=== PATIENT | female | born 1990 | race American Indian/Alaskan Native ===

== ENCOUNTER 2018-08-30 13:18 | Emergency (ER) | payer MEDICAID ==
--- NOTE | 2018-08-30 14:04 | Emergency Department Report ---
Blank Doc - Documentation Documentation: This is a 27-year-old female that presents with dizziness with nausea. Denies any vomiting. Denies any other symptoms or complaints. This initial assessment diagnostic orders/clinical plan/treatment(s) is/are subject to change based on patient's health status, clinical progression and re- assessment by fellow clinical providers in the ED. Further treatment and workup at subsequent clinical providers discretion. Patient/guardians urged not to elope from ED s their condition may be serious if not clinically assessed and managed. Initial orders include: 1-Patient sent to [facility] for further evaluation and treatment 2- Labs
[2018-08-30 14:49] LABS: Bacteria,Urine 1+ /HPF (Negative); Bilirubin,Urine NEG (Negative); Blood,Urine NEG (Negative); Color,Urine Yellow (Yellow); Mucus,Urine FEW /HPF; Protein,Urine <15 mg/dL mg/dL (Negative); Urobilinogen,Urine < 2.0 mg/dL (<2.0)
[2018-08-30 14:52] LABS: HCG Qualitative,Urine Negative (Negative)
[2018-08-30 14:56] LABS: Basophils # (Auto) 0.1 K/mm3 (0.0-0.1); Basophils % (Auto) 1.4 % (0.0-1.8); Eosinophils % (Auto) 0.8 % (0.0-4.3); Lymphocytes # (Auto) 1.9 K/mm3 (1.2-5.4); Lymphocytes % (Auto) 41.5 % (13.4-35.0); Mean Corpuscular HGB Conc 29 % (30-34); Monocytes # (Auto) 0.4 K/mm3 (0.0-0.8); Monocytes % (Auto) 8.3 % (0.0-7.3); Platelet Count 411 K/mm3 (140-440); Red Blood Count 4.27 M/mm3 (3.65-5.03)
[2018-08-30 15:06] LABS: Hematocrit 23.8 % (30.3-42.9); Hemoglobin 6.9 gm/dl (10.1-14.3); Mean Corpuscular Volume 56 fl (79-97); Red Cell Distribution Width 20.7 % (13.2-15.2)
[2018-08-30 15:10] LABS: BUN/Creatinine Ratio 25; Blood Urea Nitrogen 10 mg/dL (7-17); Calcium 9.3 mg/dL (8.4-10.2); Hemolysis Index 0
--- NOTE | 2018-08-30 15:23 | Emergency Department Report ---
- General Chief complaint: Dizziness Stated complaint: NAUSEA/DIZZY/LIGHT HEADED Time Seen by Provider: 08/30/18 14:03 Source: patient Mode of arrival: Ambulatory Limitations: No Limitations - History of Present Illness Initial comments: She is a 27-year-old Afro[place] female who comes to the ER today with generalized weakness. 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 She states that she is always weak and tired because she is anemic she states is aren't deficiency anemia. Has been getting worse. Her last menstrual cycle was on 08-26. She denies that this was a heavy menses. She states that it was normal and that her menses don't normally make her more weak and symptomatic with her anemia. Patient last saw her PCP at [facility] in about 2 months ago. At that time they told her to go immediately to an emergency room for an iron infusion. She did not go. She states that these symptoms are just impairing her ability to go through her activities of daily living so she came to the ER today. Pt has note had to get iron or blood in the past Past medical history significant for only the anemia. She is on no home medications. Discussed with Dr Rafael MCCULLOUGH Complaint: generalized weakness -: Gradual Quality: constant Improves with: none Worsens with: movement, exertion Associated Symptoms: shortness of breath, other (GEN WEAKNESS). denies: chest pain, confusion, dark stools, diaphoresis, dysuria, easy bruising, fever/chills, headaches, loss of appetite, nausea/vomiting, myalgias, rash, syncope - Related Data Home Medications Medication Instructions Recorded Confirmed Last Taken No Known Home Medications [No 08/30/18 08/30/18 Unknown Reported Home Medications] Allergies Allergy/AdvReac Type Severity Reaction Status Date / Time No Known Allergies Allergy Unverified 08/30/18 13:20 ED Review of Systems ROS: Stated complaint: NAUSEA/DIZZY/LIGHT HEADED Other details as noted in HPI Comment: All other systems reviewed and negative Constitutional: denies: chills, fever Eyes: denies: eye pain ENT: denies: ear pain Respiratory: see HPI, shortness of breath. denies: orthopnea Cardiovascular: as per HPI, dyspnea on exertion. denies: chest pain, palpitations Endocrine: denies: flushing Gastrointestinal: denies: abdominal pain Genitourinary: denies: urgency Musculoskeletal: denies: back pain Skin: denies: lesions Neurological: as per HPI, weakness. denies: headache, numbness, paresthesias, confusion, abnormal gait, vertigo Psychiatric: denies: depression Hematological/Lymphatic: denies: easy bleeding ED Past Medical Hx - Past Medical History Previous Medical History?: Yes Additional medical history: anemia- IRON DEF - Surgical History Past Surgical History?: Yes - Family History Family history: no significant - Social History Smoking Status: Never Smoker Substance Use Type: None - Medications Home Medications: Home Medications Medication Instructions Recorded Confirmed Last Taken Type No Known Home Medications [No 08/30/18 08/30/18 Unknown History Reported Home Medications] ED Physical Exam - General Limitations: No Limitations General appearance: alert - Head Head exam: Present: atraumatic, normocephalic - Eye Eye exam: Present: PERRL, EOMI, other (pale conjunctiva) - ENT ENT exam: Present: mucous membranes moist, other (pale muscous membranes) - Neck Neck exam: Present: normal inspection - Respiratory Respiratory exam: Present: normal lung sounds bilaterally - Cardiovascular Cardiovascular Exam: Present: regular rate, other (wide pulse pressure) - GI/Abdominal GI/Abdominal exam: Present: soft, normal bowel sounds - Rectal Rectal exam: Present: deferred - Extremities Exam Extremities exam: Present: normal inspection - Back Exam Back exam: Present: normal inspection, full ROM - Neurological Exam Neurological exam: Present: alert, oriented X3, normal gait - Psychiatric Psychiatric exam: Present: normal affect, normal mood - Skin Skin exam: Present: warm, dry ED Course Vital Signs 08/30/18 14:03 Temperature 98.1 F Pulse Rate 70 Respiratory 18 Rate Blood Pressure 175/64 O2 Sat by Pulse 100 Oximetry - Reevaluation(s) Reevaluation #1: 08/30/18 15:[address] Starr He agrees pt needs tranfusion He will see and eval her Reevaluation #2: 08/30/18 16:18 PT FE NOTED AT 17 PT BEING TRANSFUSED WILL REPEAT CBC 1 HOUR AFTER BLOOD GIVEN DISPO PER DR STARR ED Medical Decision Making - Lab Data Result diagrams: 08/30/18 14:24 08/30/18 14:24 - Medical Decision Making iron/tibc pending t/c ordered Discussed with Dr Hall. Will ask hosp med to see and evaluate pt for her symptomatic anemia and Hgb of 6.9. In the context of being told to come to the ER months ago for an urgent iron infusion. 1620 fe noted at 17 Pt being transfused with 1 u RBC Will recheck CBC 1 h after transfusion with dispo per Dr Hunter Hall updated Lab Results 08/30/18 08/30/18 08/30/18 Range/Units 14:16 14:24 14:24 WBC 4.5 (4.5-11.0) K/mm3 RBC 4.27 (3.65-5.03) M/mm3 Hgb 6.9 L (10.1-14.3) gm/dl Hct 23.8 L (30.3-42.9) % MCV 56 L (79-97) fl MCH 16 L (28-32) pg MCHC 29 L (30-34) % RDW 20.7 H (13.2-15.2) % Plt Count 411 (140-440) K/mm3 Lymph % (Auto) 41.5 H (13.4-35.0) % [place] % (Auto) 8.3 H (0.0-7.3) % Eos % (Auto) 0.8 (0.0-4.3) % Baso % (Auto) 1.4 (0.0-1.8) % Lymph # 1.9 (1.2-5.4) K/mm3 [place] # 0.4 (0.0-0.8) K/mm3 Eos # 0.0 (0.0-0.4) K/mm3 Baso # 0.1 (0.0-0.1) K/mm3 Seg Neutrophils % 48.0 (40.0-70.0) % Seg Neutrophils # 2.2 (1.8-7.7) K/mm3 Sodium 140 (137-145) mmol/L Potassium 3.9 (3.6-5.0) mmol/L Chloride 103.8 (98-107) mmol/L Carbon Dioxide 25 (22-30) mmol/L Anion Gap 15 mmol/L BUN 10 (7-17) mg/dL Creatinine 0.4 L (0.7-1.2) mg/dL Estimated GFR > 60 ml/min BUN/Creatinine Ratio 25 % Glucose 89 (65-100) mg/dL Calcium 9.3 (8.4-10.2) mg/dL Urine Color Yellow (Yellow) Urine Turbidity Clear (Clear) Urine pH 7.0 (5.0-7.0) Ur Specific [place] 1.018 (1.003-1.030) Urine Protein <15 mg/dl (Negative) mg/dL Urine Glucose (UA) Neg (Negative) mg/dL Urine Ketones Neg (Negative) mg/dL Urine Blood Neg (Negative) Urine Nitrite Neg (Negative) Urine Bilirubin Neg (Negative) Urine Urobilinogen < 2.0 (<2.0) mg/dL Ur Leukocyte Esterase Neg (Negative) Urine WBC (Auto) Not Reportable Urine RBC (Auto) 1.0 (0.0-6.0) /HPF U Epithel Cells (Auto) 1.0 (0-13.0) /HPF Urine Bacteria (Auto) 1+ (Negative) /HPF Urine Mucus Few /HPF Urine HCG, Qual Negative (Negative) Labs 08/30/18 08/30/18 08/30/18 14:16 14:24 14:24 WBC 4.5 RBC 4.27 Hgb 6.9 L Hct 23.8 L MCV 56 L MCH 16 L MCHC 29 L RDW 20.7 H Plt Count 411 Lymph % (Auto) 41.5 H [place] % (Auto) 8.3 H Eos % (Auto) 0.8 Baso % (Auto) 1.4 Lymph # 1.9 [place] # 0.4 Eos # 0.0 Baso # 0.1 Seg Neutrophils % 48.0 Seg Neutrophils # 2.2 Sodium 140 Potassium 3.9 Chloride 103.8 Carbon Dioxide 25 Anion Gap 15 BUN 10 Creatinine 0.4 L Estimated GFR > 60 BUN/Creatinine Ratio 25 Glucose 89 Calcium 9.3 Iron TIBC Urine Color Yellow Urine Turbidity Clear Urine pH 7.0 Ur Specific [place] 1.018 Urine Protein <15 mg/dl Urine Glucose (UA) Neg Urine Ketones Neg Urine Blood Neg Urine Nitrite Neg Urine Bilirubin Neg Urine Urobilinogen < 2.0 Ur Leukocyte Esterase Neg Urine WBC (Auto) Not Reportable Urine RBC (Auto) 1.0 U Epithel Cells (Auto) 1.0 Urine Bacteria (Auto) 1+ Urine Mucus Few Urine HCG, Qual Negative Blood Type Antibody Screen Crossmatch 08/30/18 08/30/18 15:34 15:34 WBC RBC Hgb Hct MCV MCH MCHC RDW Plt Count Lymph % (Auto) [place] % (Auto) Eos % (Auto) Baso % (Auto) Lymph # [place] # Eos # Baso # Seg Neutrophils % Seg Neutrophils # Sodium Potassium Chloride Carbon Dioxide Anion Gap BUN Creatinine Estimated GFR BUN/Creatinine Ratio Glucose Calcium Iron 17 L TIBC 403 Urine Color Urine Turbidity Urine pH Ur Specific [place] Urine Protein Urine Glucose (UA) Urine Ketones Urine Blood Urine Nitrite Urine Bilirubin Urine Urobilinogen Ur Leukocyte Esterase Urine WBC (Auto) Urine RBC (Auto) U Epithel Cells (Auto) Urine Bacteria (Auto) Urine Mucus Urine HCG, Qual Blood Type O POSITIVE Antibody Screen Negative Crossmatch See Detail - Differential Diagnosis symptomatic anemia Critical care attestation.: If time is entered above; I have spent that time in minutes in the direct care of this critically ill patient, excluding procedure time. ED Disposition Clinical Impression: Symptomatic anemia Disposition: DC09 OP ADMIT IP TO THIS HOSP Is pt being admited?: Yes Does the pt Need Aspirin: No Condition: Stable Referrals: PRIMARY MD MARI [Primary Care Provider] - 3-5 Days Time of Disposition: 15:31
[2018-08-30] MEDS ORDERED: NACL 0.9% 500 ML 500 ML IV ONE (15:37)
[2018-08-30 15:59] LABS: Iron 17 ug/dL (37-170); Total Iron Binding Capacity 403 mcg/dL (250-450)
[2018-08-30 21:27] VITALS: BP 125/83
[2018-08-30 21:50] LABS: Basophils # (Auto) 0.1 K/mm3 (0.0-0.1); Basophils % (Auto) 1.3 % (0.0-1.8); Eosinophils # (Auto) 0.1 K/mm3 (0.0-0.4); Eosinophils % (Auto) 1.9 % (0.0-4.3); Hematocrit 23.5 % (30.3-42.9); Hemoglobin 7.4 gm/dl (10.1-14.3); Lymphocytes # (Auto) 2.2 K/mm3 (1.2-5.4); Lymphocytes % (Auto) 47.7 % (13.4-35.0); Mean Corpuscular HGB Conc 32 % (30-34); Monocytes # (Auto) 0.4 K/mm3 (0.0-0.8); Monocytes % (Auto) 7.8 % (0.0-7.3); Platelet Count 338 K/mm3 (140-440); Red Blood Count 3.94 M/mm3 (3.65-5.03)
[2018-08-30 21:52] LABS: Mean Corpuscular Volume 60 fl (79-97); Red Cell Distribution Width 21.8 % (13.2-15.2)
--- NOTE | 2018-08-30 22:35 | Emergency Department Report ---
Silva Doc - Documentation Documentation: 1. Ms. Bond is a 27-year-old -[place] female presents much Department of for dizziness found to have anemia and seen by MERI Whiteside. With the initial plan to admit to Dr. Harrison see her note for more details. One unit of packed blood cells complete and then in hemoglobin improved from 6.9, to 7.4. Patient denies any bleeding. Per consultation with attending Dr. Olivier Marlow home had a [id number] with Ms. Bond. Plan is to discharge home with iron tablets and Colace. I had no [id number] or contact with Ms. Bond.
== END 2018-08-30 22:59 | disposition admitted as inpatient to this hospital (09) ==
LOC: ED 13:18
DX: D64.89 Other specified anemias (principal)
CPT/HCPCS: 36415; 36430; 80048; 81001; 81025; 83550; 85025; 86850; 86900; 86901; 86920; 99283; J7040; P9016